=== PATIENT | male | born 1990 | race Caucasian/White ===

== ENCOUNTER 2024-08-19 12:13 | Outpatient (CLI) | payer BC, SELFPAY ==
[2024-08-19 12:41] LABS: Basophils Percent Auto 0.4 % (0.2-1.2); Eosinophils Absolute Auto 0.1 K/mm3 (0-0.3); Hematocrit 42.3 % (42.0-52.0); Hemoglobin 13.7 g/dL (14.0-18.0); Immature Granulocyte Absolute 0.03 K/mm3 (0.00-0.031); Immature Granulocyte Percent A 0.5 % (0-0.5); Lymphocytes Absolute Auto 1.44 K/mm3 (0.9-3.2); Mean Corpuscular HGB Conc 32.4 g/dl (32-36); Mean Corpuscular Hemoglobin 27.5 pg (26-34); Mean Corpuscular Volume 84.9 fl (80-100); Mean Platelet Volume 9.2 fl (7.4-10.4); Monocytes Absolute Auto 0.8 K/mm3 (0.1-0.6); Monocytes Percent Auto 13.7 % (2.6-8.5); Neutrophils Absolute Auto 3.2 K/mm3 (1.3-6.7); Neutrophils Percent Auto 57.4 % (45.5-73.1); Platelet Count Result 278 k/mm3 (150-375); Red Blood Count 4.98 M/mm3 (4.6-6.20); Red Cell Distribution Width 11.9 % (11.5-14.5); White Blood Count 5.5 K/mm3 (4.5-10.0)
--- OUTSIDE RECORDS SUMMARY | 2024-08-19 13:00 | XMS_ITS | Clinical Summary ---
Author Organization [facility] Address [address] [place] [address] Care Team Providers Care Fence Builder Name Role Phone Tay Loyola MD Primary Care Provider [phone] Allergies Active Allergy Reactions Criticality Noted Date Comments Cefaclor Rash 08/20/2020 Penicillins Rash 08/20/2020 Sulfa Antibiotics Rash 08/20/2020 Medications ondansetron (Zofran ODT) 4 MG TABLET DISPERSIBLEIndicati ons:Nausea and vomiting, intractability of vomiting not specified, unspecified vomiting type Take 1 Tablet by mouth every 8 hours as needed for Nausea - 1st line. 30 Tablet 1 Active loperamide (IMODIUM) 2 MG CapsuleIndications: Diarrhea, unspecified type Take 1 Capsule by mouth as needed for Diarrhea. 30 Capsule 1 Active Active Problems No known active problems Social History Tobacco Use Types Packs/Day Years Used Date Smoking Tobacco: Never Smokeless Tobacco: Never Sex and Gender Information Value Date Recorded Sex Assigned at Not on file Legal Sex Male 9:32 PM CDT Gender Identity Not on file Sexual Orientation Not on file Last Filed Vital Signs Vital Sign Reading Time Taken Comments Blood Pressure 158/69 08/20/2020 4:25 PM CDT Pulse 60 08/20/2020 4:25 PM CDT Temperature 36.8 C (98.3 F) 08/20/2020 4:25 PM CDT Respiratory Rate 18 08/20/2020 4:25 PM CDT Oxygen Saturation 98% 08/20/2020 4:25 PM CDT Inhaled Oxygen Concentration - - Weight 99.8 kg (220 lb) 08/20/2020 4:25 PM CDT Height 170.2 cm (5' 7 ) 08/20/2020 4:25 PM CDT Body Mass Index 34.46 08/20/2020 4:25 PM CDT Plan of Treatment Health Maintenance Due Date Last Done Comments Hepatitis C Virus (HCV) Screening 1991 TdaP Immunization 1991 Hepatitis B Immunization (1 of 3 - 19+ 3-dose series) 2010 Influenza Immunization (#1) 2024 03/22/2019 SARS-COV-2 Immunization (2023- season) 2024 06/09/2020, 05/19/2020 Respiratory Syncytial Virus (RSV) Immunization (Adult) (1 - 1-dose 75+ series) 2066 Meningococcal Immunization (ACWY) Aged Out No longer eligible b ased on patient's age to complete this topic Pneumococcal Immunization Combined Aged Out No longer eligible b ased on patient's age to complete this topic Rotavirus Immunization Aged Out No lo nger eligible based on patient's age to complete this topic Insurance CIG Care Teams Fence Builder Relationship Specialty Start Date End Date Tay Loyola MD [address] [address] PCP - General Family Medicine 08/20/20
--- OUTSIDE RECORDS SUMMARY | 2024-08-19 13:01 | XMS_ITS | Clinical Summary ---
Author Organization [facility] Address [address] [place] [address] Care Team Providers Care Car Unloader Helper Name Role Phone Tay Loyola MD Primary Care Provider Unavailabl e Allergies Active Allergy Reactions Criticality Noted Date Comments Amoxicillin Hives 09/03/2009 Cefaclor Hives 09/03/2009 Sulfamethoxazole-Trimethoprim Rash Low 2009 Medications No known medications Active Problems No known active problems Resolved Problems Problem Noted Date Diagnosed Date Resolved Date Physical exam 07/26/2020 07/30/2020 Family History Medical History Relation Comments TIA Brother Diabetes Maternal Grandfather Diabetes Maternal Uncle Hypertension Mother Diabetes Paternal Grandfather Stroke Paternal Grandfather Relation Status Comments Brother Maternal Grandfather Maternal Uncle Mother Paternal Grandfather Social History Tobacco Use Types Packs/Day Years Used Date Smoking Tobacco: Never Smokeless Tobacco: Current Chew Alcohol Use Standard Drinks/Week Comments Yes 0 (1 standard drink = 0.6 oz pur e alcohol) PHQ-2 Answer Date Recorded PHQ-2 Score - If the patient scores above 3, please move on to questions 3-9 0 07/26/2020 Sex and Gender Information Value Date Recorded Sex Assigned at Male 02/29/2024 7:58 AM CDT Legal Sex Male 6:13 PM CDT Gender Identity Male 02/29/2024 7:58 AM CDT Sexual Orientation Straight 02/29/2024 7: 58 AM CDT Last Filed Vital Signs Vital Sign Reading Time Taken Comments Blood Pressure 128/80 07/26/2020 9:26 AM CAD CAM PROGRAMMER Pulse 63 07/26/2020 9:26 AM CAD CAM PROGRAMMER Temperature 36.5 C (97.7 F) 07/26/2020 9:26 AM CAD CAM PROGRAMMER Respiratory Rate 16 07/26/2020 9:26 AM CAD CAM PROGRAMMER Oxygen Saturation 99% 07/26/2020 9:26 AM CAD CAM PROGRAMMER Inhaled Oxygen Concentration - - Weight 104.3 kg (230 lb) 07/26/2020 9:26 AM CAD CAM PROGRAMMER Height 170.2 cm (5' 7 ) 07/26/2020 9:26 AM CAD CAM PROGRAMMER Body Mass Index 36.02 07/26/2020 9:26 AM CAD CAM PROGRAMMER Plan of Treatment Health Maintenance Due Date Last Done Comments Hepatitis C 2009 Annual Physical 07/26/2021 07/26/2020 COVID-19 Vaccine ( season) 2024 06/09/2020, 05/19/2020 Influenza Adult (#1) 2024 03/22/2019, 03/11/2018, 04/16/2016, Additional history exists DTaP, Tdap and Td Vaccines (2 - Td or Tdap) 04/16/2026 04/16/2016 Hepatitis B Vaccines Completed 06/04/2001, 03/22/2001, 12/23/2000 HPV Vaccines Completed 06/16/2016, 06/01, 10/04/2012 Meningococcal B Vaccine Aged Out No l onger eligible based on patient's age to complete this topic Meningococcal Vaccine Aged Out No mauro ricardo eligible based on patient's age to complete this topic Pneumococcal Vaccine: Pediatrics (0 to 5 Years) and At-Risk Patients (6 to 64 Years) Aged Out No longer eligible based on patient's age to complete this topic RSV Immunizations Under 20 Months Aged Out No longer eligible based on patient's age to complete [place] [address] [facility] CIG[employer] Care Teams Car Unloader Helper Relationship Specialty Start Date End Date Tay Loyola MD PCP - General FAMILY MEDICINE SPORTS MEDICINE 07/24/20
--- OUTSIDE RECORDS SUMMARY | 2024-08-19 13:01 | XMS_ITS | Clinical Summary ---
Author Organization [facility] [address] Address [address] [place] [address] Care Team Providers Care Ob/Gyn Physician Name Role Phone No, Physician Primary Care Provider [phone] Allergies Active Allergy Reactions Criticality Noted Date Comments Cefaclor Hives,Rash,Urticaria Medium 09/03/2009 Penicillins Hives,Rash,Urticaria Medium 09/03/2009 Sulfa (Sulfonamide Antibiotics) Rash Medium 07/31 Sulfamethoxazole-Trimethoprim Rash,Urticaria Medium Medications amLODIPine (NORVASC) 10 mg tablet Take 10 mg by mouth daily 11/28/2019 Active metoprolol XL (TOPROL-XL) 50 mg extended release tablet Take 50 mg by mouth daily 11/28/2019 Active benzonatate (TESSALON) 100 mg capsuleIndicati ons:Cough Take 1 capsule (100 mg total) by mouth 3 (three) times a day as needed for cough 42 capsule 08/06/2023 Active Active Problems Problem Noted Date Diagnosed Date Elevated liver enzymes 07/01/2019 Prediabetes 04/02/2018 Overview (06/18/2022): 03/31/18: 1+ glycosuria, hemoglobin A1C 6.0. Mass of right testicle 06/16/2016 Overview (06/18/2022): See US, probably dilated sperm duct. 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 Social History Tobacco Use Types Packs/Day Years Used Date Smoking Tobacco: Former Cigarettes Tobacco Cessation:Counseling Given: Not Answered Personal Safety Answer Date Recorded Getting School Help Needed Not on file 07/31 Sex and Gender Information Value Date Recorded Sex Assigned at Not on file Legal Sex Male 2:23 PM CDT Gender Identity Male 02/28/2024 11:25 PM CDT Sexual Orientation Straight 02/28/2024 11 :25 PM CDT Obstetrics History Last Filed Vital Signs Vital Sign Reading Time Taken Comments Blood Pressure 132/84 08/06/2023 5:13 PM [employer] OFFICER Pulse 80 08/06/2023 5:13 PM [employer] OFFICER Temperature 37.3 C (99.2 F) 08/06/2023 5:13 PM [employer]SP[employer] OFFICER Respiratory Rate 20 08/06/2023 5:13 PM NAV[employer] OFFICER Oxygen Saturation 98% 08/06/2023 5:13 PM NAVY AIRSP[employer] OFFICER Inhaled Oxygen Concentration - - Weight 106.6 kg (235 lb) 08/06/2023 5:13 PM NAVY AIRSP[employer] OFFICER Height 170.2 cm (5' 7 ) 08/06/2023 5:13 PM NAVY AIRSP[employer] OFFICER Body Mass Index 36.81 08/06/2023 5:13 PM NAVY AIRSP[employer] OFFICER Plan of Treatment Health Maintenance Due Date Last Done Comments Depression Screening 1991 Hepatitis C Screening 1991 Varicella Vaccines (1 of 2 - 13+ 2-dose series) 01/08/2004 Regular Well Visit/Exam 18-64 2009 Influenza Vaccine (#1) 2024 9, 03/11/2018, 04/16/2016, Additional history exists DTaP/Tdap/Td Vaccine (3 - Td or Tdap) 04/16/2026 04/16/2016, 10/30/2004 Hepatitis B Screening Completed 06/04/2001 , 03/22/2001, 12/23/2000 HPV Vaccines Completed 06/16/2016, 06/01, 10/04/2012 Pneumococcal vaccine <65 Aged Out No longer eligible based on patient's age to complete this topic Insurance [employer] MD [employer] MD Care Teams Ob/Gyn Physician Relationship Specialty Start Date End Date No, Physician PCP - General 06/18/22
--- OUTSIDE RECORDS SUMMARY | 2024-08-19 13:01 | XMS_ITS | Encounter Summary ---
Author Organization [facility] Address [address] [place] [address] Phone Care Team Providers Care Signal Supervisor Name Role Phone No, Physician Primary Care Provider [phone] Encounter Details Date Type Department Care Team (Late st Contact Info) Description 10/30/2017 Orders Only [facility] ProviderCony MD [address] [place] [address] Social History Tobacco Use Types Packs/Day Years Used Date Smoking Tobacco: Never Assessed Sex and Gender Information Value Date Recorded Sex Assigned at Not on file Legal Sex Male 2:23 PM CDT Gender Identity Male 02/28/2024 11:25 PM CDT Sexual Orientation Straight 02/28/2024 11 :25 PM CDT documented as of this encounter Plan of Treatment Not on file documented as of this encounter Procedures Procedure Name Priority Date/Time Associated Diagnosis Comments DISCHARGE LABORATORY CUMULATIVE REPORT 10/30/2017 12:00 AM CDT documented in this encounter Results * DISCHARGE LABORATORY CUMULATIVE REPORT (10/30/2017 12:00 AM CDT) Narrative 10/30/2017 12:00 AM CDT Ordered by an unspecified provider. Historical Provider LAB BLOOD ORDERABLES Jaymie l Result documented in this encounter Visit Diagnoses Not on filedocumented in this encounter Additional Health Concerns Infection Onset Date Last Indicated Resolved Time Exposure, COVID-19 Comment:Added automatically based on COVID19 lab answers indicating exposure risk 08/06/2023 08/06/2023 08/16/2023 3:06 AM C DT COVID: Suspected 08/06/2023 08/06/2023 08/06/2023 5:32 PM GAS ATTENDANT Influenza, adult 08/06/2023 08/06/2023 08/13/2023 3:05 AM CDT documented as of this encounter Care Teams Signal Supervisor Relationship Specialty Start Date End Date No, Physician PCP - General 06/18/22 documented as of this encounter
--- OUTSIDE RECORDS SUMMARY | 2024-08-19 13:01 | XMS_ITS | Referral Summary ---
Author Organization [facility] [address] Address [address] [place] [address] Care Team Providers Care Utility Engineer Name Role Phone No, Physician Primary Care Provider [phone] Allergies Active Allergy Reactions Criticality Noted Date [...] Orientation Straight 02/28/2024 11 :25 PM CDT Last Filed Vital Signs Vital Sign Reading Time Taken Comments Blood Pressure 132/84 08/06/2023 5:13 PM MATERIALS COORDINATOR Pulse 80 08/06/2023 5:13 PM MATERIALS COORDINATOR Temperature 37.3 C (99.2 F) 08/06/2023 5:13 PM MATERIALS COORDINATOR Respiratory Rate 20 08/06/2023 5:13 PM MATERIALS COORDINATOR Oxygen Saturation 98% 08/06/2023 5:13 PM MATERIALS COORDINATOR Inhaled Oxygen Concentration - - Weight 106.6 kg (235 lb) 08/06/2023 5:13 PM MATERIALS COORDINATOR Height 170.2 cm (5' 7 ) 08/06/2023 5:13 PM MATERIALS COORDINATOR Body Mass Index 36.81 08/06/2023 5:13 PM MATERIALS COORDINATOR Plan of Treatment Not on file Insurance [facility] [employer] [place] Care Teams Utility Engineer Relationship Specialty Start Date End Date No, Physician PCP - General 06/18/22
--- OUTSIDE RECORDS SUMMARY | 2024-08-19 13:01 | XMS_ITS | Clinical Summary ---
Author Organization [employer]Arabella Ocutec [facility] Address [address] [place] [address] [place] [address] Care Team Providers Care Grades 1 Through 5 Teacher Name Role Phone Unavailable Primary Care Provider Unavailabl e Allergies Active Allergy Reactions Criticality Noted Date Comments Amoxicillin Hives High 06/18/2022 Cefaclor Hives High 06/18/2022 Sulfa (Sulfonamide Antibiotics) Hives High 06/01 Medications benzonatate (TESSALON) 200 mg capsule Take 1 Capsule (200 mg) by mouth 3 times daily as needed FOR COUGH. 30 Capsule 06/18/2022 5:09 PM CONFIGURATION MANAGEMENT ANALYST 06/18/2022 Active doxycycline monohydrate 100 mg Tablet Take 1 tablet (100 mg total) by mouth 2 (two) times a day for 7 days 14 Tablet 06/18/2022 5:09 PM CONFIGURATION MANAGEMENT ANALYST 06/18/2022 Active Social History Tobacco Use Types Packs/Day Years Used Date Smoking Tobacco: Never Assessed Sex and Gender Information Value Date Recorded Sex Assigned at Not on file Legal Sex Male 12:18 PM CONFIGURATION MANAGEMENT ANALYST Gender Identity Not on file Sexual Orientation Not on file Plan of Treatment Health Maintenance Due Date Last Done Comments DTAP/TDAP/TD VACCINES (1 - Tdap) 2010 HEPATITIS B VACCINES (1 of 3 - 19+ 3-dose series) 2010 INFLUENZA VACCINE (#1) 2023 HPV VACCINES Aged Out No longer eligi ble based on patient's age to complete this topic PNEUMOCOCCAL VACCINE 0-49 YEARS Aged Out No longer eligible based on patient's age to complete this topic Insurance [employer]
[2024-08-19 13:05] LABS: Alanine Aminotransferase 45 U/L (6-50); Albumin Level 4.5 g/dL (3.5-5.1); Alkaline Phosphatase 73 U/L (38-126); Anion Gap 12 mmol/L (4-12); Aspartate Amino Transferase 28 U/L (17-59); Bilirubin,Total 0.7 mg/dL (0.2-1.3); Blood Urea Nitrogen 15 mg/dL (9-20); Calcium 9.7 mg/dL (8.4-10.2); Carbon Dioxide 25 mmol/L (22-30); Chloride 103 mmol/L (98-107); Cholesterol 180 mg/dL (0-200); Estimated Glomerular Filt Rate > 60; Glucose 149 mg/dL (65-110); HDL Direct 34 mg/dL; Potassium 4.3 mmol/L (3.4-5.0); Sodium 140 mmol/L (137-145); Triglycerides 133 mg/dL (<150)
[2024-08-19 13:16] LABS: LDL Cholesterol Direct 106 mg/dL
[2024-08-19 13:36] LABS: Thyroid Stimulating Hormone 0.898 uIU/mL (0.465-4.680)
== END 2024-08-19 12:14 | disposition home or self-care (01) ==
PROVIDERS: PCP Internal Medicine; Visit Provider Internal Medicine
DX: Z00.00 Encounter for general adult medical examination without abnormal findings (principal); R53.83 Other fatigue
CPT/HCPCS: 36415; 80053; 80061; 84402; 84403; 84443; 85025

== ENCOUNTER 2024-08-26 18:54 | Emergency (ER) | payer BC, SELFPAY ==
--- NOTE | ~2024-08-26 | XR_ITS ---
XR chest 2V Ordering provider: Megan Rivero NP History: 34 years Male with . cough, SOB with exertion . Comparison: None. FINDINGS: MEDIASTINUM: The cardiac silhouette is not enlarged. LUNGS: No , effusions or pneumothorax. No focal areas of opacification the left midzone which may ind icate focal pneumonia. Follow-up advised. OTHER: No free air under the diaphragm. IMPRESSION: Left midzone focal pneumonia. Follow-up advised to exclude nodules. Reviewed, dictated and finalized at location A.
--- NOTE | 2024-08-26 19:04 | ED.URI ---
HPI - URI/Sore Throat General Chief Complaint: Upper Respiratory Infection Stated Complaint: COUGH/SINUS Time Seen by Provider: 08/26/24 19:05 Source: patient Mode of arrival: ambulatory Limitations: no limitations History of Present Illness HPI Narrative: 34-year-old male presents with complaint cough, chest congestion fatigue, shortness of breath with exertion. Feels like he cannot take a deep. Patient states that he has been coughing for over a week. Saw his primary care physician and was given azithromycin. Reports no improvement in symptoms. Concern for pneumonia. Taking [id number] Robitussin. All systems reviewed and negative except as noted above. Related Data Allergies Allergy/AdvReac Type Severity Reaction Status Date / Time amoxicillin AdvReac Mild Hives Verified 08/26/24 19:04 cefaclor AdvReac Hives Verified 08/26/24 19:04 sulfamethoxazole (From AdvReac Hives Verified 08/26/24 19:04 Bactrim) trimethoprim (From Bactrim) AdvReac Hives Verified 08/26/24 19:04 Review of Systems Review of Systems: CONSTITUTIONAL: Denies fever, chills, or sweats. EYES: Denies visual changes, redness, or discharge. ENT: Denies rhinorrhea, congestion, sore throat, or otalgia. CARDIOVASCULAR: Denies chest pain, palpitations, or edema. RESPIRATORY: Reports cough, chest pressure, dyspnea with exertion. GASTROINTESTINAL: Denies abdominal pain, nausea, vomiting, or diarrhea. GENITOURINARY: Denies dysuria or hematuria. SKIN: Denies rash or itching. MUSCULOSKELETAL: Denies back pain, joint pain, or myalgia. NEUROLOGIC: Denies headache, numbness, or weakness. PSYCHIATRIC: Denies anxiety or depression. All other systems reviewed are negative, except as documented in HPI. ON LICENSE OF [facility] Family History Family History (Updated 08/19/24 @ 12:08 by Jorge Munoz DO) Mother Hypertension Obesity Grandparent Cerebrovascular accident Social History Social History (Updated 08/19/24 @ 10:41 by Theo Beyer CMA) Smoking status: Former smoker Tobacco type: cigarettes Smoking end date: 05/31/12 Alcohol intake: never Substance use: never Gender identity (if verbalized by the patient): Male Comments At time of signature, agree with nursing past medical, surgical, social and family history. There is no relevant family history pertinent to the presenting complaint. Exam Narrative: GENERAL: This is a well-nourished, well-developed patient, in no apparent distress. HEAD: normocephalic, atraumatic. EYES: PERRL. Sclera clear/white. Vision is grossly intact. EARS: External ears normal, auditory canals clear and without drainage, TMs normal without perforation. Hearing grossly intact. NOSE: External nose normal with no obvious nasal discharge, nares without redness, no rhinorrhea. THROAT: Mucous membranes moist, posterior pharynx clear. NECK: Neck supple, non-tender without lymphadenopathy, masses or thyromegaly. CARDIOVASCULAR: Regular rate and rhythm without murmurs, gallops, or rubs. RESPIRATORY: Mildly decreased throughout all lung taylor. Breath sounds equal bilaterally. No wheezes, rales, or rhonchi. SKIN: warm, Dry, intact with no suspicious lesions or rash, good texture and turgor. NEURO: awake, alert, and oriented to person, place and time. There were no obvious focal neurologic abnormalities. EXTREMITIES: No joint tenderness, effusion, or edema noted. Course Course Level of Care: [facility] Visit Vital Signs Vital signs: Reviewed MDM - URI/Sore Throat MDM Narrative Medical decision making narrative: X-ray of chest shows possible focal pneumonia. Recommend follow-up to rule out nodules. Patient alert, nontoxic. Treat with doxycycline, prednisone, albuterol inhaler. Patient was given DuoNeb at [facility] and does report improvement in breathing. Please be advised this is a medical document. It is intended for kuyb-al-wmet communication. It is written in medical language and may contain unfamiliar abbreviations or verbiage. Medical documents are intended to carry relevant information, facts as evident, and the clinical opinion of the practitioner at the time of the encounter. This report may have been done utilizing a voice recognition system. Attempts have been made to correct errors. However, there may be uncorrected grammatical, spelling, and recognition errors present. The file time of this note does not necessarily represent the time of service. Imaging Data My impression: Agree with radiologist Radiologist's impression: XR chest 2V Ordering provider: Megan Rivero NP History: 34 years Male with . cough, SOB with exertion . Comparison: None. FINDINGS: MEDIASTINUM: The cardiac silhouette is not enlarged. LUNGS: No , effusions or pneumothorax. No focal areas of opacification the left midzone which may indicate focal pneumonia. Follow-up advised. OTHER: No free air under the diaphragm. IMPRESSION: Left midzone focal pneumonia. Follow-up advised to exclude nodules. Discharge Plan Discharge Clinical Impression: Pneumonia Qualifiers: Pneumonia type: due to unspecified organism Laterality: left Patient Disposition: Home, Self-Care Condition: Stable Instructions: Antibiotic Form, Pneumonia (ED) Additional Instructions: The x-ray of your chest showed pneumonia. Possible nodules were seen on chest x-ray. Follow-up with primary care physician for further evaluation. Take medications as prescribed. Drink at least 64 oz of water a day. For any concerns for respiratory distress go to the ER. Patient Language: Serbian Prescriptions: New doxycycline hyclate 100 mg capsule 100 mg PO BID 7 Days Qty: 14 0RF benzonatate 200 mg capsule 200 mg PO TID PRN (Reason: cough) Qty: 20 0RF prednisone 20 mg tablet 40 mg PO DAILY 5 Days Qty: 10 0RF albuterol sulfate 90 mcg/actuation HFA aerosol inhaler 2 puff inhalation Q4-6H PRN (Reason: shortness of breath or wheezing) Qty: 8.5 0RF (DME) Aerochamber Plus Z Stat Spacer See Rx Instructions .Route Qty: 1 0RF Rx Instructions: As directed No Action topiramate [Topamax] 50 mg tablet 50 mg PO QHS Qty: 30 4RF benzonatate 200 mg capsule 200 mg PO TID PRN (Reason: cough) Qty: 30 0RF Zepbound 2.5 mg/0.5 mL pen injector 2.5 mg subcut WEEKLY Qty: 2 0RF Rx Instructions: for 4 weeks; call for next dose Follow-up/Referrals: Jorge Munoz DO [Primary Care Provider] - Stand Alone Forms: Work/School Release IP Time of Disposition: 19:44
[2024-08-26 19:06] VITALS: BP 155/93; PULSE 107; RESP 16; TEMP 36.3; O2SAT 100
[2024-08-26] MEDS: IPRATROPIUM 0.5 MG/ALBUTEROL SULFATE 2.5 MG AMPUL.NEB 3 ML INHALATION (19:23)
== END 2024-08-26 19:49 | disposition home or self-care (01) ==
PROVIDERS: Emergency Provider Nurse Practitioner Family; PCP Internal Medicine
DX: J18.9 Pneumonia, unspecified organism (principal); Z87.891 Personal history of nicotine dependence
CPT/HCPCS: 71046; 99213; G0463

== ENCOUNTER 2024-08-31 14:14 | Outpatient (CLI) | payer BC, SELFPAY ==
--- OUTSIDE RECORDS SUMMARY | 2024-08-31 15:22 | XMS_ITS | Clinical Summary ---
Author Organization [facility] [address] [place] [address] Address [address] [place] [address] Care Team Providers Care Service Station Cashier Name Role Phone No, Physician Primary Care Provider [phone] Allergies Active Allergy Reactions Criticality Noted Date [...] Comments Blood Pressure 132/84 08/06/2023 5:13 PM HOUSE NURSE Pulse 80 08/06/2023 5:13 PM HOUSE NURSE Temperature 37.3 C (99.2 F) 08/06/2023 5:13 PM HOUSE NURSE Respiratory Rate 20 08/06/2023 5:13 PM HOUSE NURSE Oxygen Saturation 98% 08/06/2023 5:13 PM HOUSE NURSE Inhaled Oxygen Concentration - - Weight 106.6 kg (235 lb) 08/06/2023 5:13 PM HOUSE NURSE Height 170.2 cm (5' 7 ) 08/06/2023 5:13 PM HOUSE NURSE Body Mass Index 36.81 08/06/2023 5:13 PM HOUSE NURSE Plan of Treatment Health Maintenance Due Date [...] patient's age to complete this topic [place] Care Teams Service Station Cashier Relationship Specialty Start Date End Date No, Physician PCP - General 06/18/22
--- OUTSIDE RECORDS SUMMARY | 2024-08-31 15:22 | XMS_ITS | Encounter Summary ---
Author Organization [facility] Address [address] [place] [address] Phone Care Team Providers Care Osd Clerk Name Role Phone No, Physician Primary Care Provider [phone] Encounter Details Date Type Department Care Team (Late st Contact Info) Description 10/30/2017 Orders Only [facility] ProviderCony MD [address] [place] [address] Social History Tobacco Use Types Packs/Day [...] COVID: Suspected 08/06/2023 08/06/2023 08/06/2023 5:32 PM ASPHALT TAMPER Influenza, adult 08/06/2023 08/06/2023 08/13/2023 3:05 AM CDT documented as of this encounter Care Teams Osd Clerk Relationship Specialty Start Date End Date No, Physician PCP - General 06/18/22 documented as of this encounter
--- OUTSIDE RECORDS SUMMARY | 2024-08-31 15:22 | XMS_ITS | Clinical Summary ---
Author Organization [facility] Address [address] [place] [address] Care Team Providers Care Instructor Hairspring Name Role Phone Tay Loyola MD Primary Care Provider [phone] Allergies Active Allergy Reactions Criticality Noted Date [...] complete this topic Insurance [employer] Care Teams Instructor Hairspring Relationship Specialty Start Date End Date Tay Loyola MD [address] [address] PCP - General Family Medicine 08/20/20
--- OUTSIDE RECORDS SUMMARY | 2024-08-31 15:22 | XMS_ITS | Clinical Summary ---
Author Organization [employer] [facility] Address [address] [place] [address] [place] [address] Care Team Providers Care Towel Rolling Machine Operator Name Role Phone Unavailable Primary Care Provider Unavailabl e Allergies Active Allergy Reactions Criticality Noted Date Comments Amoxicillin Hives High 06/18/2022 Cefaclor Hives High 06/18/2022 Sulfa (Sulfonamide Antibiotics) Hives High 06/01 Medications benzonatate (TESSALON) 200 mg capsule Take 1 Capsule (200 mg) by mouth 3 times daily as needed FOR COUGH. 30 Capsule 06/18/2022 5:09 PM LOSS PREVENTION AUDITOR 06/18/2022 Active doxycycline monohydrate 100 mg Tablet Take 1 tablet (100 mg total) by mouth 2 (two) times a day for 7 days 14 Tablet 06/18/2022 5:09 PM LOSS PREVENTION AUDITOR 06/18/2022 Active Social History Tobacco Use Types Packs/Day Years Used Date Smoking Tobacco: Never Assessed Sex and Gender Information Value Date Recorded Sex Assigned at Not on file Legal Sex Male 12:18 PM LOSS PREVENTION AUDITOR Gender Identity Not on file Sexual Orientation [...]
--- OUTSIDE RECORDS SUMMARY | 2024-08-31 15:22 | XMS_ITS | Referral Summary ---
Author Organization [facility] [address] Address [address] [place] [address] Care Team Providers Care Naval Aircrewman Name Role Phone No, Physician Primary Care Provider [phone] Allergies Active Allergy Reactions Criticality Noted Date [...] Comments Blood Pressure 132/84 08/06/2023 5:13 PM DOOR FRAMER Pulse 80 08/06/2023 5:13 PM DOOR FRAMER Temperature 37.3 C (99.2 F) 08/06/2023 5:13 PM DOOR FRAMER Respiratory Rate 20 08/06/2023 5:13 PM DOOR FRAMER Oxygen Saturation 98% 08/06/2023 5:13 PM DOOR FRAMER Inhaled Oxygen Concentration - - Weight 106.6 kg (235 lb) 08/06/2023 5:13 PM DOOR FRAMER Height 170.2 cm (5' 7 ) 08/06/2023 5:13 PM DOOR FRAMER Body Mass Index 36.81 08/06/2023 5:13 PM DOOR FRAMER Plan of Treatment Not on file Insurance [facility] Care Teams Naval Aircrewman Relationship Specialty Start Date End Date No, Physician PCP - General 06/18/22
--- OUTSIDE RECORDS SUMMARY | 2024-08-31 15:22 | XMS_ITS | Clinical Summary ---
Author Organization [facility] Address [address] [place] [id number] Care Team Providers Care Regional Production Manager Name Role Phone Tay Loyola MD Primary [...] Comments Blood Pressure 128/80 07/26/2020 9:26 AM AGRICULTURAL PRODUCE SORTER Pulse 63 07/26/2020 9:26 AM AGRICULTURAL PRODUCE SORTER Temperature 36.5 C (97.7 F) 07/26/2020 9:26 AM AGRICULTURAL PRODUCE SORTER Respiratory Rate 16 07/26/2020 9:26 AM AGRICULTURAL PRODUCE SORTER Oxygen Saturation 99% 07/26/2020 9:26 AM AGRICULTURAL PRODUCE SORTER Inhaled Oxygen Concentration - - Weight 104.3 kg (230 lb) 07/26/2020 9:26 AM AGRICULTURAL PRODUCE SORTER Height 170.2 cm (5' 7 ) 07/26/2020 9:26 AM AGRICULTURAL PRODUCE SORTER Body Mass Index 36.02 07/26/2020 9:26 AM AGRICULTURAL PRODUCE SORTER Plan of Treatment Health Maintenance Due Date Last Done Comments Hepatitis C 2009 Annual Physical 07/26/2021 07/26/2020 COVID-19 Vaccine (3 - 2023-2 5 season) 2024 06/09/2020, 05/19/2020 DTaP, Tdap and Td Vaccines ( 2 - Td or Tdap) 04/16/2026 04/16/2016 Hepatitis B Vaccines Completed 06/04/2001, 03/22/2001, 12/23/2000 HPV Vaccines Completed 06/16/2016, 06/14/2015, 10/04/2012 Meningococcal B Vaccine Aged Out No l onger eligible based on patient's age to complete this topic Meningococcal Vaccine Aged Out No mauro ricardo eligible based on patient's age to complete this topic Pneumococcal Vaccine: Pediatrics (0 to 5 Years) and At-Risk Patients (6 to 64 Years) Aged Out No longer eligible b ased on patient's age to complete this topic RSV Immunizations Under 20 Months Aged Out No longer eligible b ased on patient's age to complete this topic Insurance [facility] Care Teams Regional Production Manager Relationship Specialty Start Date End Date Tay Loyola MD PCP - General FAMILY MEDICINE SPORTS MEDICINE 07/24/20
[2024-08-31 16:41] LABS: Hemoglobin A1C 7.9 % (<5.7)
== END 2024-08-31 14:15 | disposition home or self-care (01) ==
LOC: ANHLAB 14:19
PROVIDERS: PCP Internal Medicine; Visit Provider Internal Medicine
DX: R73.9 Hyperglycemia, unspecified (principal)
CPT/HCPCS: 36415; 83036

== ENCOUNTER 2024-09-09 09:52 | Outpatient (CLI) | payer BC, SELFPAY ==
--- OUTSIDE RECORDS SUMMARY | 2024-09-09 10:25 | XMS_ITS | Clinical Summary ---
Author Organization [facility] Address [address] [place] [address] Care Team Providers Care Plasterer Maintenance Name Role Phone Tay Loyola MD Primary [...] Comments Blood Pressure 128/80 07/26/2020 9:26 AM COMMUNICATIONS EQUIPMENT OPERATOR Pulse 63 07/26/2020 9:26 AM COMMUNICATIONS EQUIPMENT OPERATOR Temperature 36.5 C (97.7 F) 07/26/2020 9:26 AM COMMUNICATIONS EQUIPMENT OPERATOR Respiratory Rate 16 07/26/2020 9:26 AM COMMUNICATIONS EQUIPMENT OPERATOR Oxygen Saturation 99% 07/26/2020 9:26 AM COMMUNICATIONS EQUIPMENT OPERATOR Inhaled Oxygen Concentration - - Weight 104.3 kg (230 lb) 07/26/2020 9:26 AM COMMUNICATIONS EQUIPMENT OPERATOR Height 170.2 cm (5' 7 ) 07/26/2020 9:26 AM COMMUNICATIONS EQUIPMENT OPERATOR Body Mass Index 36.02 07/26/2020 9:26 AM COMMUNICATIONS EQUIPMENT OPERATOR Plan of Treatment Health Maintenance Due Date [...] patient's age to complete this topic Insurance [facility] Care Teams Plasterer Maintenance Relationship Specialty Start Date End Date Tay Loyola MD PCP - General FAMILY MEDICINE SPORTS MEDICINE 07/24/20
--- OUTSIDE RECORDS SUMMARY | 2024-09-09 10:25 | XMS_ITS | Encounter Summary ---
Author Organization [facility] Address [address] [place] [address] Phone Care Team Providers Care Finance Advisor Name Role Phone No, Physician Primary Care Provider [phone] Encounter Details Date Type Department Care Team (Late st Contact Info) Description 10/30/2017 Orders Only [facility] ProviderCony MD [address] [place] [id number] Social History Tobacco Use Types Packs/Day [...] COVID: Suspected 08/06/2023 08/06/2023 08/06/2023 5:32 PM REGULATORY COMPLIANCE ENGINEER Influenza, adult 08/06/2023 08/06/2023 08/13/2023 3:05 AM CDT documented as of this encounter Care Teams Finance Advisor Relationship Specialty Start Date End Date No, Physician PCP - General 06/18/22 documented as of this encounter
--- OUTSIDE RECORDS SUMMARY | 2024-09-09 10:25 | XMS_ITS | Clinical Summary ---
Author Organization [facility] [address] Address [address] [place] [address] Care Team Providers Care Blind Cleaner Name Role Phone No, Physician Primary Care Provider [phone] Allergies Active Allergy Reactions Criticality Noted Date [...] Comments Blood Pressure 132/84 08/06/2023 5:13 PM BOILER ROOM OPERATOR Pulse 80 08/06/2023 5:13 PM BOILER ROOM OPERATOR Temperature 37.3 C (99.2 F) 08/06/2023 5:13 PM BOILER ROOM OPERATOR Respiratory Rate 20 08/06/2023 5:13 PM BOILER ROOM OPERATOR Oxygen Saturation 98% 08/06/2023 5:13 PM BOILER ROOM OPERATOR Inhaled Oxygen Concentration - - Weight 106.6 kg (235 lb) 08/06/2023 5:13 PM BOILER ROOM OPERATOR Height 170.2 cm (5' 7 ) 08/06/2023 5:13 PM BOILER ROOM OPERATOR Body Mass Index 36.81 08/06/2023 5:13 PM BOILER ROOM OPERATOR Plan of Treatment Health Maintenance Due [...] patient's age to complete this topic [place] [employer] [place] [place] Care Teams Blind Cleaner Relationship Specialty Start Date End Date No, Physician PCP - General 06/18/22
--- OUTSIDE RECORDS SUMMARY | 2024-09-09 10:25 | XMS_ITS | Clinical Summary ---
Author Organization [facility] Address [address] [place] [address] [place] [address] Care Team Providers Care Marketing Automation Analyst Name Role Phone Unavailable Primary Care Provider Unavailabl e Allergies Active Allergy Reactions Criticality Noted Date Comments Amoxicillin Hives High 06/18/2022 Cefaclor Hives High 06/18/2022 Sulfa (Sulfonamide Antibiotics) Hives High 06/01 Medications benzonatate (TESSALON) 200 mg capsule Take 1 Capsule (200 mg) by mouth 3 times daily as needed FOR COUGH. 30 Capsule 06/18/2022 5:09 PM MOTION PICTURE FILM EXAMINER 06/18/2022 Active doxycycline monohydrate 100 mg Tablet Take 1 tablet (100 mg total) by mouth 2 (two) times a day for 7 days 14 Tablet 06/18/2022 5:09 PM MOTION PICTURE FILM EXAMINER 06/18/2022 Active Social History Tobacco Use Types Packs/Day Years Used Date Smoking Tobacco: Never Assessed Sex and Gender Information Value Date Recorded Sex Assigned at Not on file Legal Sex Male 12:18 PM MOTION PICTURE FILM EXAMINER Gender Identity Not on file Sexual Orientation [...]
--- OUTSIDE RECORDS SUMMARY | 2024-09-09 10:25 | XMS_ITS | Clinical Summary ---
Author Organization [facility] Address [address] [place] [address] Care Team Providers Care Glass Sander Name Role Phone Tay Loyola MD Primary Care Provider [phone] Allergies Active Allergy Reactions Criticality Noted Date [...] complete this topic Insurance [employer] Care Teams Glass Sander Relationship Specialty Start Date End Date Tay Loyola MD [address] [address] PCP - General Family Medicine 08/20/20
--- OUTSIDE RECORDS SUMMARY | 2024-09-09 10:25 | XMS_ITS | Referral Summary ---
Author Organization [facility] [address] Address [address] [place] [address] Care Team Providers Care Choir Teacher Name Role Phone No, Physician Primary Care Provider [phone] Allergies Active Allergy Reactions Criticality Noted Date [...] Comments Blood Pressure 132/84 08/06/2023 5:13 PM EXCEPTIONAL CHILDREN'S TEACHER Pulse 80 08/06/2023 5:13 PM EXCEPTIONAL CHILDREN'S TEACHER Temperature 37.3 C (99.2 F) 08/06/2023 5:13 PM EXCEPTIONAL CHILDREN'S TEACHER Respiratory Rate 20 08/06/2023 5:13 PM EXCEPTIONAL CHILDREN'S TEACHER Oxygen Saturation 98% 08/06/2023 5:13 PM EXCEPTIONAL CHILDREN'S TEACHER Inhaled Oxygen Concentration - - Weight 106.6 kg (235 lb) 08/06/2023 5:13 PM EXCEPTIONAL CHILDREN'S TEACHER Height 170.2 cm (5' 7 ) 08/06/2023 5:13 PM EXCEPTIONAL CHILDREN'S TEACHER Body Mass Index 36.81 08/06/2023 5:13 PM EXCEPTIONAL CHILDREN'S TEACHER Plan of Treatment Not on file Insurance [facility] [employer] [place] Care Teams Choir Teacher Relationship Specialty Start Date End Date No, Physician PCP - General 06/18/22
[2024-09-11 04:33] LABS: FSH 5.6 mIU/mL (1.4-12.8); LH 2.5 mIU/mL (1.5-9.3); Prolactin 4.2 ng/mL (2.0-18.0)
[2024-09-15 10:24] LABS: Testosterone Free 42.5 pg/mL (35.0-155.0); Testosterone Total 222 ng/dL (250-1100)
== END 2024-09-09 09:53 | disposition home or self-care (01) ==
LOC: ANHLAB 09:53
PROVIDERS: PCP Internal Medicine; Visit Provider Internal Medicine
DX: E29.1 Testicular hypofunction (principal)
CPT/HCPCS: 36415; 83001; 83002; 84146; 84402; 84403

== ENCOUNTER 2024-09-28 15:09 | Outpatient (CLI) | payer BC, SELFPAY ==
--- NOTE | ~2024-09-28 | XR_ITS ---
EXAMINATION: XR chest 2V 09/28/2024 15:18 INDICATION: Pneumonia PROCEDURE: 2 view chest COMPARISON: 08/26/2024 FINDINGS: The lungs are clear. The cardiomediastinal silhouette is within normal limits. There are no pleural effusions. There is no pneumothorax suspected. IMPRESSION: 1: NO ACUTE CARDIOPULMONARY DISEASE. Reviewed, dictated and finalized at location A.
== END 2024-09-28 15:10 | disposition home or self-care (01) ==
LOC: GOSHIMG 15:10
PROVIDERS: PCP Internal Medicine; Visit Provider Internal Medicine
DX: J18.9 Pneumonia, unspecified organism (principal)
CPT/HCPCS: 71046

== ENCOUNTER 2024-10-21 00:52 | Day surgery (SDC) | payer BC, SELFPAY ==
[2024-10-14 12:15] VITALS: BMI 34.9
--- OUTSIDE RECORDS SUMMARY | 2024-10-21 00:55 | XMS_ITS | Clinical Summary ---
Author Organization [facility] [address] Address [address] [place] [address] Care Team Providers Care Humanities Instructor Name Role Phone No, Physician Primary Care Provider [phone] Allergies Active Allergy Reactions Criticality Noted Date [...] Comments Blood Pressure 132/84 08/06/2023 5:13 PM CONSTRUCTION SUPERVISOR Pulse 80 08/06/2023 5:13 PM CONSTRUCTION SUPERVISOR Temperature 37.3 C (99.2 F) 08/06/2023 5:13 PM CONSTRUCTION SUPERVISOR Respiratory Rate 20 08/06/2023 5:13 PM CONSTRUCTION SUPERVISOR Oxygen Saturation 98% 08/06/2023 5:13 PM CONSTRUCTION SUPERVISOR Inhaled Oxygen Concentration - - Weight 106.6 kg (235 lb) 08/06/2023 5:13 PM CONSTRUCTION SUPERVISOR Height 170.2 cm (5' 7 ) 08/06/2023 5:13 PM CONSTRUCTION SUPERVISOR Body Mass Index 36.81 08/06/2023 5:13 PM CONSTRUCTION SUPERVISOR Plan of Treatment Health Maintenance Due Date Last Done Comments Depression Screening 1991 Hepatitis C Screening 1991 Varicella Vaccines (1 of 2 - 13+ 2-dose series) 01/08/2004 Regular Well Visit/Exam 18-64 2009 Influenza Vaccine (Season Ended) 2025 03/22/2019, 03/11/2018, 04/16/2016, Additional history exists DTaP/Tdap/Td Vaccine (3 - Td or Tdap) 04/16/2026 04/16/2016, 10/30/2004 Hepatitis B Screening Completed 06/04/2001 , 03/22/2001, 12/23/2000 HPV Vaccines Completed 06/16/2016, 06/01, 10/04/2012 Pneumococcal vaccine <65 Aged Out No longer eligible based on patient's age to complete this topic [place] [employer] [place] [employer] [place] Care Teams Humanities Instructor Relationship Specialty Start Date End Date No, Physician PCP - General 06/18/22
--- OUTSIDE RECORDS SUMMARY | 2024-10-21 00:55 | XMS_ITS | Encounter Summary ---
Author Organization [facility] Address [address] [place] [address] Phone Care Team Providers Care Captain Of Guards Name Role Phone No, Physician Primary Care Provider [phone] Encounter Details Date Type Department Care Team (Late st Contact Info) Description 10/30/2017 Orders Only [facility] ProviderCony MD [address] [place] [address] Social History Tobacco Use Types Packs/Day [...] COVID: Suspected 08/06/2023 08/06/2023 08/06/2023 5:32 PM BAR TENDER Influenza, adult 08/06/2023 08/06/2023 08/13/2023 3:05 AM CDT documented as of this encounter Care Teams Captain Of Guards Relationship Specialty Start Date End Date No, Physician PCP - General 06/18/22 documented as of this encounter
--- OUTSIDE RECORDS SUMMARY | 2024-10-21 00:55 | XMS_ITS | Clinical Summary ---
Author Organization [facility] Address [address] [place] [address] Care Team Providers Care Tip Stitcher Name Role Phone Tay Loyola MD Primary Care Provider [phone] Allergies Active Allergy Reactions Criticality Noted Date [...] complete this topic Insurance CIG Care Teams Tip Stitcher Relationship Specialty Start Date End Date Tay Loyola MD [address] [address] PCP - General Family Medicine 08/20/20
--- OUTSIDE RECORDS SUMMARY | 2024-10-21 00:55 | XMS_ITS | Referral Summary ---
Author Organization [facility] [address] Address [address] [place] [address] Care Team Providers Care C S S Representative Name Role Phone No, Physician Primary Care Provider [phone] Allergies Active Allergy Reactions Criticality Noted Date [...] Comments Blood Pressure 132/84 08/06/2023 5:13 PM GRILL PREP COOK Pulse 80 08/06/2023 5:13 PM GRILL PREP COOK Temperature 37.3 C (99.2 F) 08/06/2023 5:13 PM GRILL PREP COOK Respiratory Rate 20 08/06/2023 5:13 PM GRILL PREP COOK Oxygen Saturation 98% 08/06/2023 5:13 PM GRILL PREP COOK Inhaled Oxygen Concentration - - Weight 106.6 kg (235 lb) 08/06/2023 5:13 PM GRILL PREP COOK Height 170.2 cm (5' 7 ) 08/06/2023 5:13 PM GRILL PREP COOK Body Mass Index 36.81 08/06/2023 5:13 PM GRILL PREP COOK Plan of Treatment Not on file Insurance [facility] [employer] [place] Care Teams C S S Representative Relationship Specialty Start Date End Date No, Physician PCP - General 06/18/22
--- OUTSIDE RECORDS SUMMARY | 2024-10-21 00:55 | XMS_ITS | Clinical Summary ---
Author Organization [facility] Address [address] [place] [address] [place] [address] Care Team Providers Care Automotive Sales Specialist Name Role Phone Unavailable Primary Care Provider Unavailabl e Allergies Active Allergy Reactions Criticality Noted Date Comments Amoxicillin Hives High 06/18/2022 Cefaclor Hives High 06/18/2022 Sulfa (Sulfonamide Antibiotics) Hives High 06/01 Medications benzonatate (TESSALON) 200 mg capsule Take 1 Capsule (200 mg) by mouth 3 times daily as needed FOR COUGH. 30 Capsule 06/18/2022 5:09 PM FIBREGLASS LAMINATOR 06/18/2022 Active doxycycline monohydrate 100 mg Tablet Take 1 tablet (100 mg total) by mouth 2 (two) times a day for 7 days 14 Tablet 06/18/2022 5:09 PM FIBREGLASS LAMINATOR 06/18/2022 Active Social History Tobacco Use Types Packs/Day Years Used Date Smoking Tobacco: Never Assessed Sex and Gender Information Value Date Recorded Sex Assigned at Not on file Legal Sex Male 12:18 PM FIBREGLASS LAMINATOR Gender Identity Not on file Sexual Orientation [...]
[2024-10-21 11:51] VITALS: BP 138/88; PULSE 105; RESP 16; TEMP 36.6; O2SAT 98
[2024-10-21] MEDS: LACTATED RINGERS 1,000 ML 150 ML IV CONT (12:05)
[2024-10-21 12:06] LABS: Glucose Point of Care 123 mg/dl (65-105)
--- NOTE | 2024-10-21 12:48 | P.HP_ITS ---
History of Present Illness History of Present Illness Consent: Risks, benefits, and alternatives have been discussed and questions answered. Patient agrees to proceed with procedure. Chief complaint: Diarrhea, unspecified Narrative: Jian Zuluaga is a 34 year old male here for first colonoscopy, h/o IBS with post prandial diarrhea but this has improved since he started eating healthier Review of Systems Review of Systems: All systems reviewed & are unremarkable except as noted in HPI and below PMFSH Past Medical History Medical History (Updated 10/21/24 @ 12:49 by Pramod Montoya MD) IBS (irritable bowel syndrome) Hematochezia Family History Family History Mother Hypertension Obesity Grandparent Cerebrovascular accident Social History Social History Smoking packs per day: 1 Smoking cigarettes per day: 20.0 Years smoked: 4 Smoking pack-years: 4.00 Smoking status: Former smoker Tobacco type: cigarettes Smoking end date: 05/31/12 Alcohol intake: never Substance use: never Substance use type: does not use Living arrangements: with family Gender identity (if verbalized by the patient): Male Meds Home Medications and Allergies Home Medications ?Medication ?Instructions ?Recorded ?Confirmed ?Type topiramate 50 mg tablet (Topamax) 50 mg PO QHS #30 tabs 08/19/24 10/21/24 Rx albuterol sulfate 90 mcg/actuation 2 puff inhalation Q4-6H PRN 08/26/24 10/21/24 Rx aerosol inhaler shortness of breath or wheezing #8.5 grams inhalational spacing device #1 ea 08/26/24 09/29/24 Rx (Aerochamber Plus Z Stat spacer) dicyclomine 10 mg capsule 10 mg PO TID PRN abdominal pain 09/12/24 10/14/24 Rx #90 caps needle (disp) 18 G 18 gauge x 1 #50 ea 09/16/24 09/29/24 Rx (BD Regular Bevel Twilight) syringe with needle 3 mL 21 gauge #20 ea 09/19/24 09/29/24 Rx x 1 1/2 (Firefly [employer] Luer Lock Syringe with needle) tirzepatide (weight loss) 2.5 2.5 mg (0.5 mL) subcut WEEKLY #2 mL 09/20/24 10/14/24 Rx mg/0.5 mL subcutaneous pen injector (Zepbound) testosterone cypionate 200 mg/mL 100 mg (0.5 mL) IM Q7D #10 mL 09/29/24 10/21/24 Rx intramuscular oil (Depo-Testosterone) Allergies Allergy/AdvReac Type Severity Reaction Status Date / Time Penicillins Allergy Mild hive Verified 10/21/24 11:47 Sulfa (Sulfonamide Allergy Mild Hives Verified 10/21/24 11:47 Antibiotics) erythromycin base Allergy Unknown Hives Verified 10/21/24 11:47 amoxicillin AdvReac Mild Hives Verified 10/21/24 11:47 cefaclor AdvReac Hives Verified 10/21/24 11:47 sulfamethoxazole (From AdvReac Hives Verified 10/21/24 11:47 Bactrim) trimethoprim (From Bactrim) AdvReac Hives Verified 10/21/24 11:47 CEFUROXIME AXETIL Allergy Unknown Hives Uncoded 10/21/24 11:47 Vital Signs Vital Signs - 24 hr 10/21/24 11:51 Temperature 97.8 F Pulse Rate 105 H Respiratory Rate 16 Blood Pressure 138/88 Pulse Oximetry 98 Oxygen Delivery Room Air Exam Const: General: comfortable and no acute distress HENMT: Face/Nose/Sinus: Normal nares present Eyes: General: appearance normal, both eyes and all related structures Neck: Neck: no JVD Resp: Auscultation: clear to auscultation bilaterally Cardio: Rate: regular rate Rhythm: regular rhythm GI: Inspection: non-distended GI Palp: Yes Soft to palpation Skin: General skin exam: normal color Neuro: General: gait normal Speech: normal speech Extrem: General: normal to inspection Psych: Mental Status: mental status grossly normal Assessment and Plan Assessment and plan (1) Diarrhea: Qualifiers: Diarrhea type: functional diarrhea Qualified Code(s): K59.1 - Functional diarrhea Code(s): R19.7 - Diarrhea, unspecified Status: Acute (2) IBS (irritable bowel syndrome): Code(s): K58.9 - Irritable bowel syndrome, unspecified Status: Acute Assessment and Plan: colonoscopy with random bx
--- NOTE | 2024-10-21 12:50 | P.PNAN_ITS ---
Anes - Initial Pre Proc Eval Procedure: Operation Date: 10/21/24 13:00 Proposed Procedures p Colonoscopy - Pramod Montoya MD Date/Time: 10/21/24 12:50 Surgeon: Pramod Montoya MD Pre Op Diagnosis: Diarrhea, unspecified Patient Data Age: 34 Gender: M Height: 1.73 m Weight: 102.7 kg Last Vital Signs Temp 36.6 C 10/21/24 11:51 Pulse 105 H 10/21/24 11:51 Resp 16 10/21/24 11:51 BP 138/88 10/21/24 11:51 Pulse Ox 98 10/21/24 11:51 O2 Del Method Room Air 10/21/24 11:51 Allergies Allergy/AdvReac Type Severity Reaction Status Date / Time Penicillins Allergy Mild hive Verified 10/21/24 11:47 Sulfa (Sulfonamide Allergy Mild Hives Verified 10/21/24 11:47 Antibiotics) erythromycin base Allergy Unknown Hives Verified 10/21/24 11:47 amoxicillin AdvReac Mild Hives Verified 10/21/24 11:47 cefaclor AdvReac Hives Verified 10/21/24 11:47 sulfamethoxazole (From AdvReac Hives Verified 10/21/24 11:47 Bactrim) trimethoprim (From Bactrim) AdvReac Hives Verified 10/21/24 11:47 CEFUROXIME AXETIL Allergy Unknown Hives Uncoded 10/21/24 11:47 Home Medications ?Medication ?Instructions ?Recorded ?Confirmed ?Type topiramate 50 mg tablet (Topamax) 50 mg PO QHS #30 tabs 08/19/24 10/21/24 Rx albuterol sulfate 90 mcg/actuation 2 puff inhalation Q4-6H PRN 08/26/24 10/21/24 Rx aerosol inhaler shortness of breath or wheezing #8.5 grams inhalational spacing device #1 ea 08/26/24 09/29/24 Rx (Aerochamber Plus Z Stat spacer) dicyclomine 10 mg capsule 10 mg PO TID PRN abdominal pain 09/12/24 10/14/24 Rx #90 caps needle (disp) 18 G 18 gauge x 1 #50 ea 09/16/24 09/29/24 Rx (BD Regular Bevel Philipp) syringe with needle 3 mL 21 gauge #20 ea 09/19/24 09/29/24 Rx x 1 1/2 (Yolto Luer Lock Syringe with needle) tirzepatide (weight loss) 2.5 2.5 mg (0.5 mL) subcut WEEKLY #2 mL 09/20/24 10/14/24 Rx mg/0.5 mL subcutaneous pen injector (Zepbound) testosterone cypionate 200 mg/mL 100 mg (0.5 mL) IM Q7D #10 mL 09/29/24 10/21/24 Rx intramuscular oil (Depo-Testosterone) Laboratory Tests 10/21/24 12:01 POC Capillary Glucose 123 H mg/dl (65-105) Patient hx anesthesia problems: none Family hx anesthesia problems: none Results Review: All pre-operative results and documents have been reviewed as part of the pre- operative evaluation. [facility] Past Medical History Medical History IBS (irritable bowel syndrome) Hematochezia Family History Family History Mother Hypertension Obesity Grandparent Cerebrovascular accident Social History Social History Smoking packs per day: 1 Smoking cigarettes per day: 20.0 Years smoked: 4 Smoking pack-years: 4.00 Smoking status: Former smoker Tobacco type: cigarettes Smoking end date: 05/31/12 Alcohol intake: never Substance use: never Substance use type: does not use Living arrangements: with family Gender identity (if verbalized by the patient): Male Anes - Eval Final PreProcedure Day of Procedure 10/21/24 12:50 Patient weight: obese Heart: regular rate and rhythm Lungs: clear to auscultation Airway: Mallampati scale class II Neurological: alert and oriented Last oral intake: >/= 8 hours ASA classification: III Emergent: no Anesthetic plan: proceed Anesthesia type and monitoring: general GIVS and standard monitoring Results Review: All pre-operative results and documents have been reviewed as part of the pre- operative evaluation. Informed Consent: The patient's anesthetic plan and its attendant risks and benefits were discussed with the patient/family/POA. Questions were solicited and answers provided to the satisfaction of the patient/family/POA.
[2024-10-21 13:05] VITALS: BP 116/72; PULSE 78; RESP 23; O2SAT 99
[2024-10-21 13:15] VITALS: BP 119/73; PULSE 74; RESP 22; O2SAT 99
[2024-10-21 13:25] VITALS: BP 125/79; PULSE 70; RESP 19; O2SAT 99
== END 2024-10-21 13:35 | disposition home or self-care (01) ==
PROVIDERS: PCP Internal Medicine; Visit Provider Internal Medicine Gastroenterology
PROC: 0DJD8ZZ Inspection of Lower Intestinal Tract, Via Natural or Artificial Opening Endoscopic (ICD-10-PCS; CPT 45378; principal; 2024-10-21 13:00)
DX: K58.0 Irritable bowel syndrome with diarrhea (principal); D12.3 Benign neoplasm of transverse colon; Z79.85 Long-term (current) use of injectable non-insulin antidiabetic drugs; Z87.891 Personal history of nicotine dependence; E66.9 Obesity, unspecified; Z68.34 Body mass index [BMI] 34.0-34.9, adult
CPT/HCPCS: 45380; 45385; 82948; 88305; J2704; J7120

== ENCOUNTER 2024-12-14 11:31 | Outpatient (CLI) | payer BC, SELFPAY ==
--- OUTSIDE RECORDS SUMMARY | 2024-12-14 12:01 | XMS_ITS | Encounter Summary ---
Author Organization [facility] Address [address] [place] [address] Phone Care Team Providers Care Executive Vice President And Chief Financial Officer Name Role Phone No, Physician Primary Care Provider Encounter Details Date Type Department Care Team (Late st Contact Info) Description 10/30/2017 Orders Only [facility] ProviderCony MD [address] [place] [address] Social History Tobacco Use Types Packs/Day [...] COVID: Suspected 08/06/2023 08/06/2023 08/06/2023 5:32 PM CYCLE TOURING GUIDE Influenza, adult 08/06/2023 08/06/2023 08/13/2023 3:05 AM CDT documented as of this encounter Care Teams Executive Vice President And Chief Financial Officer Relationship Specialty Start Date End Date No, Physician PCP - General 06/18/22 documented as of this encounter
--- OUTSIDE RECORDS SUMMARY | 2024-12-14 12:01 | XMS_ITS | Clinical Summary ---
Author Organization [facility] Address [address] [place] [address] Care Team Providers Care Lens Dotter Name Role Phone Tay Loyola MD Primary Care Provider [phone] Allergies Active Allergy Reactions Criticality Noted Date [...] 4:25 PM CDT Height 170.2 cm (5' 7) 08/20/2020 4:25 PM CDT Body Mass Index 34.46 08/20/2020 4:25 PM CDT Plan of Treatment Health Maintenance Due Date Last Done Comments Hepatitis C Virus (HCV) Screening 1990 TdaP Immunization 1991 Human Papillomavirus (HPV) Immunization (1 - Male 3-dose series) 2006 Hepatitis B Immunization (1 of 3 - 19+ 3-dose series) 2010 SARS-COV-2 Immunization (3 - 2023- season) 2024 06/09/2020, 05/19/2020 Influenza Immunization (#1) 2025 03/22/2019 Respiratory Syncytial Virus (RSV) Immunization (Adult) (1 - 1-dose 75+ series) 2066 Meningococcal Immunization (ACWY) Aged Out No longer eligible b ased on patient's age to complete this topic Pneumococcal Immunization Combined Aged Out No longer eligible b ased on patient's age to complete this topic Rotavirus Immunization Aged Out No lo nger eligible based on patient's age to complete this topic Insurance [employer] Care Teams Lens Dotter Relationship Specialty Start Date End Date Tay Loyola MD [address] [address] PCP - General Family Medicine 08/20/20
--- OUTSIDE RECORDS SUMMARY | 2024-12-14 12:01 | XMS_ITS | Clinical Summary ---
Author Organization [facility] [address] Address [address] [place] [address] Care Team Providers Care Atmospheric Chemist Name Role Phone No, Physician Primary Care Provider [phone] Allergies Active Allergy Reactions Criticality Noted Date [...] Comments Blood Pressure 132/84 08/06/2023 5:13 PM SEW OUT OPERATOR Pulse 80 08/06/2023 5:13 PM SEW OUT OPERATOR Temperature 37.3 C (99.2 F) 08/06/2023 5:13 PM SEW OUT OPERATOR Respiratory Rate 20 08/06/2023 5:13 PM SEW OUT OPERATOR Oxygen Saturation 98% 08/06/2023 5:13 PM SEW OUT OPERATOR Inhaled Oxygen Concentration - - Weight 106.6 kg (235 lb) 08/06/2023 5:13 PM SEW OUT OPERATOR Height 170.2 cm (5' 7) 08/06/2023 5:13 PM SEW OUT OPERATOR Body Mass Index 36.81 08/06/2023 5:13 PM SEW OUT OPERATOR Plan of Treatment Health Maintenance Due Date Last Done Comments Depression Screening 1991 Hepatitis C Screening 1991 Varicella Vaccines (1 of 2 - 13+ 2-dose series) 01/08/2004 Regular Well Visit/Exam 18-64 2009 Influenza Vaccine (#1) 2025 9, 03/11/2018, 04/16/2016, Additional history exists DTaP/Tdap/Td Vaccine (3 - Td or Tdap) 04/16/2026 04/16/2016, 10/30/2004 Hepatitis B Screening Completed 06/04/2001 , 03/22/2001, 12/23/2000 HPV Vaccines Completed 06/16/2016, 06/01, 10/04/2012 Pneumococcal vaccine <65 Aged Out No longer eligible based on patient's age to complete this topic Insurance [employer] [place] [employer] [place] Care Teams Atmospheric Chemist Relationship Specialty Start Date End Date No, Physician PCP - General 06/18/22
--- OUTSIDE RECORDS SUMMARY | 2024-12-14 12:01 | XMS_ITS | Referral Summary ---
Author Organization [facility] [address] Address [address] [place] [address] Care Team Providers Care Overcoil Stepper Name Role Phone No, Physician Primary Care Provider [phone] Allergies Active Allergy Reactions Criticality Noted Date [...] Comments Blood Pressure 132/84 08/06/2023 5:13 PM HAND ASSEMBLER Pulse 80 08/06/2023 5:13 PM HAND ASSEMBLER Temperature 37.3 C (99.2 F) 08/06/2023 5:13 PM HAND ASSEMBLER Respiratory Rate 20 08/06/2023 5:13 PM HAND ASSEMBLER Oxygen Saturation 98% 08/06/2023 5:13 PM HAND ASSEMBLER Inhaled Oxygen Concentration - - Weight 106.6 kg (235 lb) 08/06/2023 5:13 PM HAND ASSEMBLER Height 170.2 cm (5' 7) 08/06/2023 5:13 PM HAND ASSEMBLER Body Mass Index 36.81 08/06/2023 5:13 PM HAND ASSEMBLER Plan of Treatment Not on file Insurance * Guarantor: Jian Zuluaga Account Type Relation to Patient Date of Phone Billing Address Personal/Family Self [address] [place] [phone] [employer] * Guarantor: Jian Zuluaga Account Type Relation to Patient Date of Phone Billing Address Personal/Family Self [address] [place] [phone] [employer] [facility] Care Teams Overcoil Stepper Relationship Specialty Start Date End Date No, Physician PCP - General 06/18/22
--- OUTSIDE RECORDS SUMMARY | 2024-12-14 12:01 | XMS_ITS | Clinical Summary ---
Author Organization [facility] Address [address] [place] [address] Care Team Providers Care Translator/Interpreter Name Role Phone Tay Loyola MD Primary [...] Comments Blood Pressure 128/80 07/26/2020 9:26 AM PRESCHOOL AIDE Pulse 63 07/26/2020 9:26 AM PRESCHOOL AIDE Temperature 36.5 C (97.7 F) 07/26/2020 9:26 AM PRESCHOOL AIDE Respiratory Rate 16 07/26/2020 9:26 AM PRESCHOOL AIDE Oxygen Saturation 99% 07/26/2020 9:26 AM PRESCHOOL AIDE Inhaled Oxygen Concentration - - Weight 104.3 kg (230 lb) 07/26/2020 9:26 AM PRESCHOOL AIDE Height 170.2 cm (5' 7) 07/26/2020 9:26 AM PRESCHOOL AIDE Body Mass Index 36.02 07/26/2020 9:26 AM PRESCHOOL AIDE Plan of Treatment Health Maintenance Due Date [...] 5 Years) and At-Risk Patients (6 to 49 Years) Aged Out No longer eligible b ased on patient's age to complete this topic RSV Immunizations Under 20 Months Aged Out No longer eligible b ased on patient's age to complete this topic Insurance [facility] Care Teams Translator/Interpreter Relationship Specialty Start Date End Date Tay Loyola MD PCP - General FAMILY MEDICINE SPORTS MEDICINE 07/24/20
[2024-12-14 12:16] LABS: Hematocrit 48.0 % (42.0-52.0); Hemoglobin 15.6 g/dL (14.0-18.0); Immature Granulocyte Percent A 0.3 % (0-0.5); Lymphocytes Absolute Auto 1.07 K/mm3 (0.9-3.2); Mean Corpuscular HGB Conc 32.5 g/dl (32-36); Mean Corpuscular Hemoglobin 28.0 pg (26-34); Mean Corpuscular Volume 86.0 fl (80-100); Nucleated Red Blood Cells Absolute Auto 0.000 K/mm3 (0.0-0.012); Nucleated Red Blood Cells Perc 0.0 % (0.0-0.2); Platelet Count Result 346 k/mm3 (150-375); Red Blood Count 5.58 M/mm3 (4.6-6.20); White Blood Count 9.0 K/mm3 (4.5-10.0)
[2024-12-14 12:36] LABS: Alanine Aminotransferase 28 U/L (6-50); Albumin Level 4.5 g/dL (3.5-5.1); Alkaline Phosphatase 55 U/L (38-126); Anion Gap 10 mmol/L (4-12); Aspartate Amino Transferase 25 U/L (17-59); Bilirubin,Total 0.5 mg/dL (0.2-1.3); Blood Urea Nitrogen 15 mg/dL (9-20); Calcium 9.8 mg/dL (8.4-10.2); Carbon Dioxide 22 mmol/L (22-30); Chloride 108 mmol/L (98-107); Estimated Glomerular Filt Rate > 60; Glucose 151 mg/dL (65-110); Potassium 4.5 mmol/L (3.4-5.0); Sodium 140 mmol/L (137-145); Total Protein 7.5 g/dL (6.3-8.2)
[2024-12-14 12:38] LABS: Hemoglobin A1C 5.7 % (<5.7)
[2024-12-17 05:08] LABS: Free Testosterone (Direct) 13.9 pg/mL (8.7-25.1)
[2024-12-19 14:08] LABS: Estradiol, Sensitive 22.6 pg/mL (8.0-35.0)
== END 2024-12-14 11:32 | disposition home or self-care (01) ==
PROVIDERS: PCP Internal Medicine; Visit Provider Internal Medicine
DX: R42 Dizziness and giddiness (principal); E11.9 Type 2 diabetes mellitus without complications; E29.1 Testicular hypofunction
CPT/HCPCS: 36415; 80053; 82670; 83036; 84402; 85025

== ENCOUNTER 2024-12-21 11:19 | Outpatient (CLI) | payer BC, SELFPAY ==
--- NOTE | ~2024-12-21 | CT_ITS ---
EXAMINATION: CT BRAIN W/O DATE: 12/21/2024 11:35 INDICATION: Dizziness and giddiness TECHNIQUE: Computed tomography (CT) of the head was performed without intravenous contrast. The dose- length product was 645.69 mGy-cm. Automated exposure control and iterative reconstruction technique were employed. COMPARISON: No prior studies for comparison. FINDINGS: Normal brain parenchymal volume for age. Normal veliz-white differentiation. No acute intrac ranial hemorrhage, infarction, mass or mass effect. No ventriculomegaly or midline shift. Midline sagittal images demonstrate a normal corpus callosum, c raniovertebral junction and sella turcica. Basilar cisterns are patent. Paranasal sinuses and mastoids are pneumatized. No depressed skull fractures. IMPRESSION: 1. No acute intracranial abnormality. Reviewed, dictated and finalized at location A.
== END 2024-12-21 11:20 | disposition home or self-care (01) ==
PROVIDERS: PCP Internal Medicine; Visit Provider Internal Medicine
DX: R42 Dizziness and giddiness (principal)
CPT/HCPCS: 70450

== ENCOUNTER 2024-12-29 11:48 | Outpatient (CLI) | payer BC, SELFPAY ==
--- OUTSIDE RECORDS SUMMARY | 2024-12-29 11:51 | XMS_ITS | Encounter Summary ---
Author Organization [facility] Address [address] [place] [address] Phone Care Team Providers Care Shop Technician Name Role Phone No, Physician Primary Care Provider [phone] Encounter Details Date Type Department Care Team (Late st Contact Info) Description 10/30/2017 Orders Only [facility] ProviderCony MD [address] [place] [address] Social History Tobacco Use Types Packs/Day [...] COVID: Suspected 08/06/2023 08/06/2023 08/06/2023 5:32 PM FIRE TECHNICIAN Influenza, adult 08/06/2023 08/06/2023 08/13/2023 3:05 AM CDT documented as of this encounter Care Teams Shop Technician Relationship Specialty Start Date End Date No, Physician PCP - General 06/18/22 documented as of this encounter
--- OUTSIDE RECORDS SUMMARY | 2024-12-29 11:51 | XMS_ITS | Clinical Summary ---
Author Organization [facility] Address [address] [place] [address] [place] [address] Care Team Providers Care Anesthesiology Crna Name Role Phone Unavailable Primary Care Provider Unavailabl e Allergies Active Allergy Reactions Criticality Noted Date Comments Amoxicillin Hives High 06/18/2022 Cefaclor Hives High 06/18/2022 Sulfa (Sulfonamide Antibiotics) Hives High 06/01 Medications benzonatate (TESSALON) 200 mg capsule Take 1 Capsule (200 mg) by mouth 3 times daily as needed FOR COUGH. 30 Capsule 06/18/2022 5:09 PM DIGITAL SOLUTION ARCHITECT 06/18/2022 Active doxycycline monohydrate 100 mg Tablet Take 1 tablet (100 mg total) by mouth 2 (two) times a day for 7 days 14 Tablet 06/18/2022 5:09 PM DIGITAL SOLUTION ARCHITECT 06/18/2022 Active Social History Tobacco Use Types Packs/Day Years Used Date Smoking Tobacco: Never Assessed Sex and Gender Information Value Date Recorded Sex Assigned at Not on file Legal Sex Male 12:18 PM DIGITAL SOLUTION ARCHITECT Gender Identity Not on file Sexual Orientation Not on file Plan of Treatment Health Maintenance Due Date Last Done Comments HPV VACCINES (1 - Male 3-dose series) 2006 DTAP/TDAP/TD VACCINES (1 - Tdap) 2010 HEPATITIS B VACCINES (1 of 3 - 19+ 3-dose series) 01/2010 INFLUENZA VACCINE (#1) 2024 Insurance [employer]
--- OUTSIDE RECORDS SUMMARY | 2024-12-29 11:51 | XMS_ITS | Clinical Summary ---
Author Organization [facility] [address] Address [address] [place] [address] Care Team Providers Care Puzzle Assembler Name Role Phone No, Physician Primary Care Provider [phone] Allergies Active Allergy Reactions Criticality Noted Date [...] Comments Blood Pressure 132/84 08/06/2023 5:13 PM TUG HAND Pulse 80 08/06/2023 5:13 PM TUG HAND Temperature 37.3 C (99.2 F) 08/06/2023 5:13 PM TUG HAND Respiratory Rate 20 08/06/2023 5:13 PM TUG HAND Oxygen Saturation 98% 08/06/2023 5:13 PM TUG HAND Inhaled Oxygen Concentration - - Weight 106.6 kg (235 lb) 08/06/2023 5:13 PM TUG HAND Height 170.2 cm (5' 7) 08/06/2023 5:13 PM TUG HAND Body Mass Index 36.81 08/06/2023 5:13 PM TUG HAND Plan of Treatment Health Maintenance Due Date [...] patient's age to complete this topic [place] [employer] [place] [employer] [place] Care Teams Puzzle Assembler Relationship Specialty Start Date End Date No, Physician PCP - General 06/18/22
--- OUTSIDE RECORDS SUMMARY | 2024-12-29 11:51 | XMS_ITS | Referral Summary ---
Author Organization [facility] [address] Address [address] [place] [address] Care Team Providers Care Receptionist/Telephone Operator Name Role Phone No, Physician Primary Care Provider [phone] Allergies Active Allergy Reactions Criticality Noted Date [...] Comments Blood Pressure 132/84 08/06/2023 5:13 PM RACING SECRETARY Pulse 80 08/06/2023 5:13 PM RACING SECRETARY Temperature 37.3 C (99.2 F) 08/06/2023 5:13 PM RACING SECRETARY Respiratory Rate 20 08/06/2023 5:13 PM RACING SECRETARY Oxygen Saturation 98% 08/06/2023 5:13 PM RACING SECRETARY Inhaled Oxygen Concentration - - Weight 106.6 kg (235 lb) 08/06/2023 5:13 PM RACING SECRETARY Height 170.2 cm (5' 7) 08/06/2023 5:13 PM RACING SECRETARY Body Mass Index 36.81 08/06/2023 5:13 PM RACING SECRETARY Plan of Treatment Not on file Insurance [facility] [employer] [place] Care Teams Receptionist/Telephone Operator Relationship Specialty Start Date End Date No, Physician PCP - General 06/18/22
--- OUTSIDE RECORDS SUMMARY | 2024-12-29 11:51 | XMS_ITS | Clinical Summary ---
Author Organization [facility] Address [address] [place] [address] Care Team Providers Care Cabin Equipment Supervisor Name Role Phone Tay Loyola MD Primary Care Provider [phone] Allergies Active Allergy Reactions Criticality Noted Date [...] patient's age to complete this topic Insurance [facility] Care Teams Cabin Equipment Supervisor Relationship Specialty Start Date End Date Tay Loyola MD [address] [address] PCP - General Family Medicine 08/20/20
--- NOTE | 2025-01-05 15:52 | WPDHOLTEREM ---
Holter/Event Monitor Holter/Event Monitor Date of procedure: 12/29/24 Holter/Event Procedure: 3-7 Day Holter Monitor Indications: Dizziness Conclusion: 1. 4 days holter monitor on 12/29/24. 2. Underlying rhythm is sinus rhythm. HR range 44-160 bpm; average HR 78 bpm. HR at 44 bpm was on 12/31/24 at 11:05 am. HR at 160 bpm was on 12/31/24 at 10:01 pm. 3. There are rare premature supraventricular complexes. No supraventricular tachycardia. 4. There are rare premature ventricular complexes and rare ventricular couplets. No ventricular tachycardia. 5. No significant pauses greater than 3 seconds. 6. No symptoms available for correlation.
== END 2024-12-29 11:49 | disposition home or self-care (01) ==
PROVIDERS: PCP Internal Medicine; Visit Provider Internal Medicine
DX: R42 Dizziness and giddiness (principal)
CPT/HCPCS: 93242

== ENCOUNTER 2025-04-03 08:40 | Outpatient (CLI) | payer BC, SELFPAY ==
--- OUTSIDE RECORDS SUMMARY | 2025-04-03 08:55 | XMS_ITS | Clinical Summary ---
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 Encounters Date Type Department Care Team Description 03/31/2025 Documentation [facility] Medicine ([facility]) [facility] Medicine Urology [address] [facility] [address] [place] [address] [place] [address] Ayala Adkins from Last 3 Months Social History Tobacco Use Types Packs/Day Years [...] Comments Blood Pressure 132/84 08/06/2023 5:13 PM SHIPPING ROOM HELPER Pulse 80 08/06/2023 5:13 PM SHIPPING ROOM HELPER Temperature 37.3 C (99.2 F) 08/06/2023 5:13 PM SHIPPING ROOM HELPER Respiratory Rate 20 08/06/2023 5:13 PM SHIPPING ROOM HELPER Oxygen Saturation 98% 08/06/2023 5:13 PM SHIPPING ROOM HELPER Inhaled Oxygen Concentration - - Weight 106.6 kg (235 lb) 08/06/2023 5:13 PM SHIPPING ROOM HELPER Height 170.2 cm (5' 7) 08/06/2023 5:13 PM SHIPPING ROOM HELPER Body Mass Index 36.81 08/06/2023 5:13 PM SHIPPING ROOM HELPER Plan of Treatment Health Maintenance Due Date [...] patient's age to complete this topic Insurance [employer] [place] Care Teams Arcade Attendant Relationship Specialty Start Date End Date No, Physician PCP - General 06/18/22
--- OUTSIDE RECORDS SUMMARY | 2025-04-03 08:55 | XMS_ITS | Encounter Summary ---
Author Organization [facility] Address [address] [place] [address] Phone Care Team Providers Care Stamping Operator Name Role Phone No, Physician Primary Care Provider [phone] Encounter Details Date Type Department Care Team (Late st Contact Info) Description 10/30/2017 Orders Only [facility] ProviderCony MD [address] [place] [address] Social History Tobacco Use Types Packs/Day [...] COVID: Suspected 08/06/2023 08/06/2023 08/06/2023 5:32 PM SOCIAL SCIENCES LECTURER Influenza, adult 08/06/2023 08/06/2023 08/13/2023 3:05 AM CDT documented as of this encounter Care Teams Stamping Operator Relationship Specialty Start Date End Date No, Physician PCP - General 06/18/22 documented as of this encounter
--- OUTSIDE RECORDS SUMMARY | 2025-04-03 08:55 | XMS_ITS | Clinical Summary ---
Author Organization [facility] Address [address] [place] [address] [place] [address] Care Team Providers Care Referral And Information Aide Name Role Phone Unavailable Primary Care Provider Unavailabl e Allergies Active Allergy Reactions Criticality Noted Date Comments Amoxicillin Hives High 06/18/2022 Cefaclor Hives High 06/18/2022 Sulfa (Sulfonamide Antibiotics) Hives High 06/01 Medications benzonatate (TESSALON) 200 mg capsule Take 1 Capsule (200 mg) by mouth 3 times daily as needed FOR COUGH. 30 Capsule 06/18/2022 5:09 PM ESTATE AND TRUST TAX PRINCIPAL 06/18/2022 Active doxycycline monohydrate 100 mg Tablet Take 1 tablet (100 mg total) by mouth 2 (two) times a day for 7 days 14 Tablet 06/18/2022 5:09 PM ESTATE AND TRUST TAX PRINCIPAL 06/18/2022 Active Social History Tobacco Use Types Packs/Day Years Used Date Smoking Tobacco: Never Assessed Sex and Gender Information Value Date Recorded Sex Assigned at Not on file Legal Sex Male 12:18 PM ESTATE AND TRUST TAX PRINCIPAL Gender Identity Not on file Sexual Orientation Not on file Plan of Treatment Health Maintenance Due Date Last Done Comments DTAP/TDAP/TD VACCINES (1 - Tdap) 2010 HEPATITIS B VACCINES (1 of 3 - 19+ 3-dose series) 01/2010 HPV VACCINES (1 - 3-dose SCDM series) 2018 INFLUENZA VACCINE (#1) 2024 Insurance [employer]
--- OUTSIDE RECORDS SUMMARY | 2025-04-03 08:55 | XMS_ITS | Clinical Summary ---
Author Organization [facility] Address [address] [place] [address] Care Team Providers Care Finish Photographer Name Role Phone Tay Loyola MD Primary Care Provider [phone] Allergies Active Allergy Reactions Criticality Noted Date [...] of 3 - 19+ 3-dose series) 2010 Human Papillomavirus (HPV) Immunization (1 - 3-dose SCDM series) 2018 Influenza Immunization (#1) 2025 03/22/2019 SARS-COV-2 Immunization (3 - 2024- season) 2025 06/09/2020, 05/19/2020 Respiratory Syncytial Virus (RSV) Immunization [...] patient's age to complete this topic Insurance [facility] Care Teams Finish Photographer Relationship Specialty Start Date End Date Tay Loyola MD [address] [address] PCP - General Family Medicine 08/20/20
[2025-04-07 10:08] LABS: Free Testosterone (Direct) 13.5 pg/mL (8.7-25.1)
[2025-04-08 14:08] LABS: Estradiol, Sensitive 22.2 pg/mL (8.0-35.0)
== END 2025-04-03 08:41 | disposition home or self-care (01) ==
LOC: ANHGOSHLAB 08:41
PROVIDERS: PCP Internal Medicine; Visit Provider Internal Medicine
DX: Z51.81 Encounter for therapeutic drug level monitoring (principal); E29.1 Testicular hypofunction
CPT/HCPCS: 82670; 84402; 84403